=== PATIENT | male | born 1990 | race Caucasian/White ===

== ENCOUNTER 2018-09-09 18:47 | Emergency (ER) | payer MEDICAID ==
[~2018-09-09] VITALS: Ht 182.9 cm; Wt 81.6 kg
[2018-09-09 18:50] VITALS: BP_SYST 134
[2018-09-09 19:40] VITALS: BP_SYST 130
== END 2018-09-09 19:40 ==
LOC: SED 18:47
DX: F11.10 Opioid abuse, uncomplicated (principal)
CPT/HCPCS: 99283

== ENCOUNTER 2019-05-28 11:43 | Emergency (ER) | payer MEDICAID ==
[~2019-05-28] VITALS: Ht 180.3 cm; Wt 84.8 kg
[2019-05-28 12:34] VITALS: BP_SYST 130
--- NOTE | 2019-05-28 13:39 | NUR ---
Patient to ER bed h1 for evaluation. Side rails up.
--- NOTE | 2019-05-28 13:41 | NUR ---
Pt AAOx4 ambulted into ED c/o L FA pain and weeping wounds of serous discharge x . days. Denies trauma. No other nijuries/complaints per pt/noted. Will continue to monitor.
--- NOTE | 2019-05-28 13:48 | NUR ---
MILLIE Atkinson at bedside examining patient.
[2019-05-28] MEDS ORDERED: IBUPROFEN 600 MG TABLET PO ONE (14:00)
[2019-05-28] MEDS ORDERED: cefTRIAXone 1 GM VIAL IM ONE (14:00)
--- NOTE | 2019-05-28 14:17 | NUR ---
Patient given written and verbal discharge instructions and verbalizes understanding. MILLIE Atkinson discussed with patient the results and treatment provided. Patient in stable condition. ID arm band removed. Rx of Motrin, Mupirocin, Keflex, Bactrim given. Patient educated on pain management and to follow up with PMD. Pain Scale 2. Demetrio BYRNE aware. Opportunity for questions provided and answered. Medication side effect fact sheet provided.
[2019-05-28 14:18] VITALS: BP_SYST 128
== END 2019-05-28 14:18 | disposition home or self-care (01) ==
LOC: SED 11:43
DX: L03.114 Cellulitis of left upper limb (principal)
CPT/HCPCS: 73090; 87070; 87186; 96372; 99284; J0696; 99283

== ENCOUNTER 2019-08-15 08:38 | Emergency (ER) | payer MEDICAID ==
[~2019-08-15] VITALS: Ht 182.9 cm; Wt 90.7 kg
[2019-08-15 08:43] VITALS: BP_SYST 134
[2019-08-15] MEDS ORDERED: fentaNYL CITRATE/PF 100 MCG/2 ML AMP IM ONE (09:15)
[2019-08-15 10:19] VITALS: BP_SYST 134
== END 2019-08-15 10:10 | disposition home or self-care (01) ==
LOC: SED 08:38
DX: S30.0XXA Contusion of lower back and pelvis, initial encounter (principal); S70.02XA Contusion of left hip, initial encounter; V29.40XA Motorcycle driver injured in collision with unspecified motor vehicles in traffic accident, initial encounter; Y93.89 Activity, other specified; Y92.89 Other specified places as the place of occurrence of the external cause; Y99.8 Other external cause status
CPT/HCPCS: 72100; 72170; 96372; 99283; J3010

== ENCOUNTER 2019-10-03 12:42 | Inpatient (IN) | payer MEDICAID, OTHER ==
[~2019-10-03] VITALS: Ht 180.3 cm; Wt 81.7 kg
[2019-10-03 12:45] VITALS: BP_SYST 148
--- NOTE | 2019-10-03 12:45 | NUR ---
Patient triaged and placed in waiting room. VSS and patient appears in no acute distress at this time. Accompanied by SELF, awaiting available bed, and MD notified of need for MSE.
[2019-10-03 14:22] LABS: BASOPHILS # (AUTO) 0.1 K/uL (0.0-0.2); BASOPHILS % (AUTO) 1.1 % (0.0-2.0); EOSINOPHILS # (AUTO) 0.1 K/uL (0.0-0.4); EOSINOPHILS % (AUTO) 2.3 % (0.0-4.0); HEMATOCRIT 42.1 % (36-54); HEMOGLOBIN 13.9 g/dL (14.0-18.0); LYMPHOCYTES # (AUTO) 1.5 K/uL (1.0-5.5); LYMPHOCYTES % (AUTO) 23.8 % (20.5-51.5); MEAN CORPUSCULAR HEMOGLOBIN 28 pg (27-31); MEAN CORPUSCULAR HGB CONC 33 % (32-36); MEAN CORPUSCULAR VOLUME 86 fL (79.0-98.0); MONOCYTES # (AUTO) 0.5 K/uL (0.0-1.0); NEUTROPHILS % (AUTO) 64.8 % (40.0-70.0); PLATELET COUNT (AUTO) 262 K/uL (130-430); RED CELL DISTRIBUTION WIDTH 17.3 % (9.0-15.0); WHITE BLOOD COUNT (AUTO) 6.1 K/uL (4.8-10.8)
[2019-10-03 14:37] LABS: ANION GAP 10 (5-15); CHLORIDE 102 mmol/L (98-107); CREATININE 0.78 mg/dL (0.55-1.30); GLUCOSE 98 mg/dL (70-99); POTASSIUM 4.1 mmol/L (3.5-5.1); SODIUM SERUM 139 mmol/L (136-145); UREA NITROGEN, BLOOD 10 mg/dL (8-21)
[2019-10-03 14:39] LABS: INR 1.1 (0.80-1.20); PROTHROMBIN TIME 11.1 SECS (9.5-12.5)
[2019-10-03 14:41] LABS: GFR AFRICAN AMERICAN 150 mL/min (>90)
[2019-10-03 14:52] LABS: ALANINE AMINOTRANSFERASE 1449 U/L (12-78); ALBUMIN 3.8 g/dL (3.4-4.8); ASPARTATE AMINOTRANSFERASE 1193 U/L (10-37)
[2019-10-03 14:55] LABS: ALCOHOL, BLOOD < 3 mg/dL (<10)
[2019-10-03 14:56] LABS: ACETAMINOPHEN < 1 ug/mL (1-30)
--- NOTE | 2019-10-03 15:01 | NUR ---
BROUGHT BACK TO BED #5 AND TRIAGED. REPORT GIVEN TO BRANDT
--- NOTE | 2019-10-03 15:10 | NUR ---
Patient arrived in the ED c/o tea-colored urine, lower abdominal pain, urinary frequency and yellow sclera that started yesterday. Bowel sounds present in all 4 quadrants, LBM 10/03/19. Denied any fevers or chills. Denied any nausea, vomiting or diarrhea. Patient is alert and oriented x4, respirations even and unlabored, speaking in full sentences, and ambulating with a steady gait. VSS, pain severity 4/10. Denied any respiratory distress at this time. Informed of the wait time. Instructed to notify ED staff for any changes in condition or worsening of symptoms. Patient verbalized understanding.
--- NOTE | 2019-10-03 15:25 | NUR ---
ECg done at bedside as ordered by Dr. Narayanan. Report given to MD. Patient tolerated the procedure well.
--- NOTE | 2019-10-03 15:29 | NUR ---
ER Dr. Narayanan at bedside examining patient.
--- NOTE | 2019-10-03 15:40 | NUR ---
# 18 gauge angiocath placed to LAC. Use of asceptic technique. Opsite placed over site. Blood return noted. Blood for lab drawn from site. Flushed with 10 cc of normal saline. No evidence of infiltration noted. Patient tolerated well.
--- NOTE | 2019-10-03 15:58 | NUR ---
Patient is taken to X-ray in stable condition.
--- NOTE | 2019-10-03 16:05 | NUR ---
Patient is back from X-ray in stable condition.
[2019-10-03 16:30] LABS: BILIRUBIN,URINE 3+ (NEGATIVE); BLOOD, URINE 3+ (NEGATIVE); COLOR,URINE BROWN (YELLOW); GLUCOSE,URINE NEGATIVE (NEGATIVE); KETONES,URINE NEGATIVE (NEGATIVE); LEUKOCYTE ESTERASE ,URINE TRACE (NEGATIVE); NITRITE, URINE POSITIVE (NEGATIVE); PH,URINE 5.5 (5.0-8.0); PROTEIN URINE 1+ (NEGATIVE)
[2019-10-03 16:47] LABS: CLARITY/URINE HAZY (CLEAR)
[2019-10-03] MEDS ORDERED: KCL 20 mEq in D5/0.45NS 1000mL 1,000 ML IV ONE ×2 (17:00→22:35)
[2019-10-03 17:18] LABS: BARBITURATE, URINE NEGATIVE (NEG <=200); BENZODIAZEPINE, URINE NEGATIVE (NEG <=150); CANNABINOID, URINE POSITIVE (NEG <=50); COCAINE, URINE NEGATIVE (NEG <=150); OPIATE, URINE NEGATIVE (NEG <=100); PHENCYCLIDINE SCREEN,URINE NEGATIVE (NEG <=25); UR TRICYCLIC ANTIDEPRESSANTS NEGATIVE (NEG <=300); URINE METHADONE NEGATIVE (NEG <=200); URINE OXYCODONE SCREEN NEGATIVE (NEG <=100); URINE PROPOXYPHENE SCREEN NEGATIVE (NEG <=300)
[2019-10-03 17:19] LABS: BACTERIA,URINE FEW /HPF (None Seen); CALCIUM OXALATE CRYSTALS,UR 0-10 /HPF (None Seen); FINE GRANULAR CASTS,URINE 0-10 /LPF (None Seen); URINE AMORPHOUS URATE 2+ /HPF (None Seen); URINE AMPHETAMINE POSITIVE (NEG <=500)
[2019-10-03 17:20] LABS: METHAMPHETAMINES SCREEN,URINE POSITIVE (NEG <=500); MUCUS,URINE 1+ /LPF (None Seen)
--- NOTE | 2019-10-03 17:30 | NUR ---
Spoke with Lisette, no beds available yet. Will call once it's ready.
--- NOTE | 2019-10-03 18:07 | NUR ---
Belonging's list done. Patient stated he's not taking meds at home.
--- NOTE | 2019-10-03 19:39 | NUR ---
Report given and care transferred to RICCARDO Sullivan.
--- NOTE | 2019-10-03 20:15 | NUR ---
Patient will be admitted to care of . Admitted to M/S unit. Will go to room 101A. Belongings list completed. Complete and up to date summary report printed. SBAR report to be given at bedside with opportunity for questions.
--- NOTE | 2019-10-03 20:33 | NUR ---
Transfer to [facility]. IV present no sign or symptom of infiltration.
--- NOTE | 2019-10-03 20:45 | NUR ---
Normal saline and Current Meds endorsed to RICCARDO Mac
--- NOTE | 2019-10-03 20:45 | NUR ---
Bedside Report given to RICCARDO Mac
--- NOTE | 2019-10-03 21:09 | NUR ---
ADMISSION: The patient, VALERY CHRISTIANSON, 29 y/o, M admitted by JERRY DEE MD, was given written information regarding hospital policies, unit procedures and contact persons. Valuables were checked and CALL JUAN INSTRUCTIONS implemented patient is AMBULATORY PROCEDURES EXPLAINED FALL MEASURES IN place .
[2019-10-03 21:13] VITALS: BP_SYST 137
--- NOTE | 2019-10-03 23:14 | NUR ---
DR LEILA WILDE @ THE BEDSIDE .
--- NOTE | 2019-10-03 23:14 | NUR ---
NEW ORDERS OBTAINED , AM LABS .
[2019-10-04 00:56] VITALS: BP_SYST 135
--- NOTE | 2019-10-04 02:19 | NUR ---
NPO this hour AM procedure U/S ABDOMEN ordered .
--- NOTE | 2019-10-04 02:24 | NUR ---
CONSULTATION PAGED/CALLED Reason for Consultation: ACUTE HEPATITIS Person Who was Notified: RIVERA Consulting Physician: WILLIAM Waxer Specialty: Ordering Physician: LEILA
--- NOTE | 2019-10-04 05:29 | NUR ---
Patient Resting is verbally Responsive HOB elevated able to self Reposition no acute distress noted call silvestre given to patient FALL MEASURES EFFECTIVE .
--- NOTE | 2019-10-04 07:56 | NUR ---
initial notes rec patient asleep but arousable to stimuli. ivl on the l forearm intact. no infiltration noted. resp easy and unlabored. bed to the lowest position and side rails up and locked. call light withn reached and knows when to call [place] assistance.
[2019-10-04 08:00] VITALS: BP_SYST 130
[2019-10-04 08:04] LABS: ALBUMIN 2.8 g/dL (3.4-4.8); CREATININE 0.73 mg/dL (0.55-1.30); PHOSPHORUS 3.5 mg/dL (2.7-4.5); POTASSIUM 3.7 mmol/L (3.5-5.1); TOTAL BILIRUBIN 6.5 mg/dL (0.0-1.0)
[2019-10-04 08:38] LABS: TOTAL IRON BIND. CAPACITY 385 ug/dL (250-450)
--- NOTE | 2019-10-04 10:00 | NUR ---
rounds sleeping soundly at this time. family at bedside. call light within reached.
[2019-10-04 12:08] VITALS: BP_SYST 122
--- NOTE | 2019-10-04 13:05 | NUR ---
CONSULTATION PAGED/CALLED Reason for Consultation: [] SUICIDAL IDEATION Person Who was Notified: [] JAVON Consulting Physician: [] DR Salma LIU Wolf Hunter Specialty: [] PSYCH Ordering Physician: [] DR DEE
--- NOTE | 2019-10-04 15:26 | NUR ---
Bread Wrapper: met with pt to conduct a DCPA . BOOT AND SADDLE REPAIR PERSON met with pt. who had a visitor, his girlfriend, Kapil Funes. 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 Kapil use to live in [facility] in [facility] and this is why pt. spends his time in [facility] as homeless. Pt refused detention resources stating he has seen them and will not go as he prefers to stay on the street. Pt. stated he does not have any connections to his family. He has a brother, but is not close to him. Pt. could not state how long he has been homeless. He said it has been anywhere between 2-4 years, staying on the streets mostly , but sometimes on a friends couch. Pt. said he has never been Dx. by any mental health professional with any Dx. He went on to say that he feels he is depressed. He stated he isolates himself, does not sleep. His girlfriend stated, pt does not eat. He said that he does use pot and other drugs as a way to calm himself down. He buys his drugs off the street and is aware of the dangers of doing this. Pt. stated about 3 weeks ago he participated in a 3 month program. for about 1 month. The facility, "[facility]" asked him to leave because he was sick and they did not want him to get the other clients ill. He stated he would be willing to go back to the same drug program or another one. BOOT AND SADDLE REPAIR PERSON asked pt. if he has ever felt suicidal. Pt responded, "Everyday ! I feel like that everyday. Pt. went on to say when he feels suicidal, he feels like he would jump off a bridge. When asked, pt. stated he would be willing to speak to a Dr. about his suicidal feelings. Pt. asked what happened if he leaves without being discharged. BOOT AND SADDLE REPAIR PERSON explained that it considered, AMA, against medical advice. If he leaves hospital AMA, he will get a hospital bill. BOOT AND SADDLE REPAIR PERSON spoke to him and asked him to let the Dr. continue to treat him and find out what his health condition is. Pt. just listened. Pt. is homeless. BOOT AND SADDLE REPAIR PERSON shared with him a homeless packet with various resources including housing, mental health, clinics, substance abuse etc. BOOT AND SADDLE REPAIR PERSON shared this info with pts. Rn. Toth and then the Marketing Reporting AnalystSarah. BOOT AND SADDLE REPAIR PERSON went back to speak to pt. who was speaking to Sarah. He stated the last time he felt suicidal was two days ago. He said he did not feel this way today. BOOT AND SADDLE REPAIR PERSON thanked him for his assistance. BOOT AND SADDLE REPAIR PERSON will remain available as needed. Allie Smith stated she is still requesting that Dr. Max ask for a pscy. consult.
--- NOTE | 2019-10-04 16:00 | NUR ---
rounds sleeping at intervals. call light within reached. bed to the lowest position and teri erails up and locked.
[2019-10-04 16:30] VITALS: BP_SYST 126
--- NOTE | 2019-10-04 18:38 | NUR ---
closing notes seen by dr edmonds. no new order. bed to the lowest position and side rails up and locked. call light within reached. no osb noted.
--- NOTE | 2019-10-04 19:40 | NUR ---
ROUNDS PATIENT RESTING COMFORTABLY IN BED, VITALS STABLE, DENIES ANY PAIN AND DISCOMFORT AT THIS TIME. ASSESSMENT DONE AND DOCUMENTED. SEE FLOWSHEET. NEEDS ATTENDED TO. SAFETY MEASURES IN PLACED. CALL LIGHT PLACED WITHIN REACH.
[2019-10-04 20:00] VITALS: BP_SYST 142
--- NOTE | 2019-10-04 22:10 | NUR ---
PATIENT RESTING: Patient resting quietly. No acute distress noted. Vital signs within normal range.
[2019-10-05] VITALS: BP_SYST 131
--- NOTE | 2019-10-05 00:28 | NUR ---
ROUNDS PATIENT ASLEEP, RESPIRATIONS EVEN AND UNLABORED, NO SOB NOR PAIN AND DISCOMFORT NOTED. WILL CONTINUE TO MONITOR.
--- NOTE | 2019-10-05 02:11 | NUR ---
ROUNDS ASLEEP, NO SIGNS OF SOB NOR PAIN AND DISCOMFORT NOTED. WILL CONTINUE TO MONITOR.
--- NOTE | 2019-10-05 04:32 | NUR ---
PATIENT RESTING: Patient resting quietly. No acute distress noted. Vital signs within normal range.
[2019-10-05 05:11] LABS: HEPATITIS A AB, IgM Negative (Negative); HEPATITIS B CORE AB, IgM Negative (Negative); HEPATITIS B SURFACE AG Negative (Negative)
--- NOTE | 2019-10-05 06:22 | NUR ---
CLOSING NOTES PATIENT AWAKE, VITALS STABLE, NO COMPLAINTS AT THIS TIME. ALL NEEDS ATTENDED TO. SAFETY MEASURES MAINTAINED. BED IN LOW AND LOCKED POSITION. CALL LIGHT PLACED WITHIN REACH.
[2019-10-05 07:06] LABS: ALBUMIN 3.1 g/dL (3.4-4.8); BILIRUBIN,DIRECT 3.7 mg/dL (0.0-0.3); TOTAL BILIRUBIN 4.4 mg/dL (0.0-1.0)
[2019-10-05 08:00] VITALS: BP_SYST 128
--- NOTE | 2019-10-05 08:00 | NUR ---
PATIENT IS RESTING; A/OX4, BUT APPEARS APATHETIC. POC IS EXPLAINED. PATIENT VERBALIZED UNDERSTANDING, BUT STATED THAT HE WANTS TO SLEEP. WILL CONTINUE TO MONITOR.
[2019-10-05 08:06] LABS: AFP, TUMOR MARKER 8.2 ng/mL (0.0-8.3)
--- NOTE | 2019-10-05 09:51 | NUR ---
PATIENT IS RESTING, AROUSABLE. WILL CONTINUE TO MONITOR.
--- NOTE | 2019-10-05 11:40 | NUR ---
PATIENT'S FAMILY IS AT BEDSIDE WITH PATIENT.
--- NOTE | 2019-10-05 13:10 | NUR ---
PATIENT FINISHES LUNCH, TOLERATED WITHOUT DISTRESS.
--- NOTE | 2019-10-05 15:35 | NUR ---
PATIENT IS RESTING, AROUSABLE. INQUIRED ABOUT PATIENT'S LIVING AND SOCIAL SITUATION WITH HIS GIRLFRIEND.
[2019-10-05 16:00] VITALS: BP_SYST 125
[2019-10-05 17:06] LABS: ANTI NUCLEAR AB WITH REFLEX Negative (Negative)
--- NOTE | 2019-10-05 18:02 | NUR ---
PATIENT FINISHED DINNER. TOLERATED WITHOUT DISTRESS.
--- NOTE | 2019-10-05 19:35 | NUR ---
ROUNDS PATIENT RESTING COMFORTABLY IN BED, VITALS STABLE, NO COMPLAINTS AT THIS TIME. ASSESSMENT DONE AND DOCUMENTED. SEE FLOWSHEET. NEEDS ATTENDED TO. SAFETY MEASURES IN PLACED. CALL LIGHT PLACED WITHIN REACH.
[2019-10-05 20:00] VITALS: BP_SYST 126
--- NOTE | 2019-10-05 20:20 | NUR ---
DR. LEILA DEE SAW THE PATIENT WITH NEW ORDERS. WILL CONTINUE TO MONITOR.
[2019-10-06] VITALS: BP_SYST 131
--- NOTE | 2019-10-06 00:13 | NUR ---
PATIENT RESTING: Patient resting quietly. No acute distress noted. Vital signs within normal range.
--- NOTE | 2019-10-06 02:14 | NUR ---
ROUNDS PATIENT ASLEEP, NO SIGNS OF ANY PAIN AND DISCOMFORT NOTED. WILL CONTINUE TO MONITOR.
[2019-10-06 08:00] VITALS: BP_SYST 122
--- NOTE | 2019-10-06 08:00 | NUR ---
PATIENT IS RESTING; A/OX4. POC IS EXPLAINED. PATIENT VERBALIZED UNDERSTANDING, BUT HE STATES HIS DESIRE TO LEAVE. HE IS INFORMED THAT HE CAN LEAVE AMA, BUT HE CHANGES HIS MIND.
[2019-10-06 08:10] LABS: BASOPHILS % (AUTO) 0.5 % (0.0-2.0); EOSINOPHILS # (AUTO) 0.2 K/uL (0.0-0.4); EOSINOPHILS % (AUTO) 2.4 % (0.0-4.0); HEMATOCRIT 43.6 % (36-54); HEMOGLOBIN 14.4 g/dL (14.0-18.0); LYMPHOCYTES # (AUTO) 2.1 K/uL (1.0-5.5); MEAN CORPUSCULAR HEMOGLOBIN 28 pg (27-31); MEAN CORPUSCULAR HGB CONC 33 % (32-36); MEAN CORPUSCULAR VOLUME 86 fL (79.0-98.0); MONOCYTES # (AUTO) 0.4 K/uL (0.0-1.0); MONOCYTES % (AUTO) 6.7 % (1.7-9.3); NEUTROPHILS # (AUTO) 3.7 K/uL (1.8-7.7); NEUTROPHILS % (AUTO) 57.4 % (40.0-70.0); PLATELET COUNT (AUTO) 250 K/uL (130-430); RED BLOOD CELL COUNT(AUTO) 5.06 MIL/uL (4.2-6.2); RED CELL DISTRIBUTION WIDTH 17.2 % (9.0-15.0); WHITE BLOOD COUNT (AUTO) 6.4 K/uL (4.8-10.8)
[2019-10-06 08:30] LABS: ALBUMIN 3.3 g/dL (3.4-4.8); CALCIUM 8.9 mg/dL (8.4-11.0); CREATININE 0.67 mg/dL (0.55-1.30); TOTAL BILIRUBIN 3.5 mg/dL (0.0-1.0)
--- NOTE | 2019-10-06 11:45 | NUR ---
DR. DEE IS CALLED IF PATIENT CAN BE DISCHARGED
--- NOTE | 2019-10-06 14:03 | NUR ---
Dr. Max is called if patient can be discharged. He agrees and gives order for his discharge.
[2019-10-06 14:06] LABS: ALPHA-1-ANTITRYPSIN, S 155 mg/dL (95-164)
[2019-10-06 14:42] VITALS: BP_SYST 122
[2019-10-07 10:06] LABS: ANTI-SMOOTH MUSCLE AB 8 Units (0-19)
[2019-10-11 15:47] LABS: FERRITIN 1070 ng/mL (30-400)
== END 2019-10-06 15:00 | disposition home or self-care (01) ==
LOC: SED 12:42 → SMU 16:54
PROVIDERS: ADMIT Family Medicine; ATTEND Family Medicine
DX: B17.9 Acute viral hepatitis, unspecified (principal); R16.1 Splenomegaly, not elsewhere classified; E66.9 Obesity, unspecified; F12.90 Cannabis use, unspecified, uncomplicated; F15.10 Other stimulant abuse, uncomplicated; F17.210 Nicotine dependence, cigarettes, uncomplicated; F32.9 Major depressive disorder, single episode, unspecified; Z59.0 Homelessness; Z79.899 Other long term (current) drug therapy; Z68.25 Body mass index [BMI] 25.0-25.9, adult
CPT/HCPCS: 36415; 70450-TC; 71045; 76700-TC; 80053; 80076; 80307; 81000-TC; 82103; 82105; 82150-TC; 82550-TC; 82728; 83516; 83540-TC; 83550-TC; 83605; 83690-TC; 83735-TC; 83880; 84100-TC; 84484; 85025; 85610-TC; 85730-TC; 86038; 86705; 86709; 86803; 87040-TC; 87086; 87340; 93005; 99285; G0480; G0481; G0482; J7030

== ENCOUNTER 2019-11-04 13:21 | Emergency (ER) | payer MEDICAID ==
[~2019-11-04] VITALS: Ht 180.3 cm; Wt 81.6 kg
[2019-11-04 13:25] VITALS: BP_SYST 134
[2019-11-04] MEDS ORDERED: ACETAMINOPHEN 500 MG TABLET PO ONE (13:45)
[2019-11-04] MEDS ORDERED: DIPH-TET-PERTUS Vaccine 0.5 ML VIAL (ADACEL) I.M. ONE (13:45)
[2019-11-04] MEDS ORDERED: AMOXICILLIN/CLAVULANATE POTASSIUM 875 MG TABLET PO ONE (15:45)
[2019-11-04] MEDS ORDERED: HYDROcodone/ACETAMIN 7.5-325 MG TAB PO ONE (15:45)
[2019-11-04] MEDS ORDERED: ACETAMINOPHEN 500 MG TABLET ONE (15:49)
[2019-11-04] MEDS ORDERED: DIPH-TET Vacc 0.5 ML VIAL I.M. ONE (15:51)
[2019-11-04 16:20] VITALS: BP_SYST 146
== END 2019-11-04 16:20 | disposition home or self-care (01) ==
LOC: SED 13:21
DX: S02.32XA Fracture of orbital floor, left side, initial encounter for closed fracture (principal); S01.81XA Laceration without foreign body of other part of head, initial encounter; S01.312A Laceration without foreign body of left ear, initial encounter; R03.0 Elevated blood-pressure reading, without diagnosis of hypertension; F17.210 Nicotine dependence, cigarettes, uncomplicated; Z71.6 Tobacco abuse counseling; Y04.0XXA Assault by unarmed brawl or fight, initial encounter; Y93.89 Activity, other specified; Y92.89 Other specified places as the place of occurrence of the external cause; Y99.8 Other external cause status
CPT/HCPCS: 70450-TC; 70486-TC; 72125-TC; 90714; 99285

== ENCOUNTER 2020-01-12 22:47 | Inpatient (IN) | payer MEDICAID ==
[~2020-01-12] VITALS: Ht 180.3 cm; Wt 70.3 kg
[2020-01-12 23:00] VITALS: BP_SYST 115
[2020-01-13] MEDS ORDERED: fentaNYL CITRATE/PF 100 MCG/2 ML AMP IVP ONE (00:15)
[2020-01-13] MEDS ORDERED: PIPERACILLIN/TAZO 3.375 GM in NS 50 ML IV ONE (00:15)
[2020-01-13] MEDS ORDERED: NACL 0.9% 1,000 ML IV ONE (00:15)
[2020-01-13] MEDS ORDERED: ACETAMINOPHEN 325 MG TABLET PO PRN ×2 (00:30→08:45)
[2020-01-13] MEDS ORDERED: HYDROcodone/ACETAMIN 5-325 MG TAB (NORCO/ VICODIN) PO PRN (00:30)
[2020-01-13] MEDS ORDERED: ONDANSETRON HCL 4 MG/2 ML VIAL IVP PRN ×2 (00:30→08:45)
[2020-01-13] MEDS ORDERED: VANCOMYCIN HCL 1,000 MG in NS 250 ML IV ONE (00:30)
[2020-01-13] MEDS ORDERED: PIPERACILLIN/TAZOBACTAM 3.375 GM/VIAL (ZOSYN) IV ONE (00:36)
[2020-01-13 00:48] LABS: HEMATOCRIT 37.3 % (36-54); HEMOGLOBIN 12.1 g/dL (14.0-18.0); MEAN CORPUSCULAR HEMOGLOBIN 28 pg (27-31); MEAN CORPUSCULAR HGB CONC 32 % (32-36); MEAN CORPUSCULAR VOLUME 85 fL (79.0-98.0); PLATELET COUNT (AUTO) 505 K/uL (130-430); RED BLOOD CELL COUNT(AUTO) 4.38 MIL/uL (4.2-6.2); RED CELL DISTRIBUTION WIDTH 14.5 % (9.0-15.0); WHITE BLOOD COUNT (AUTO) 26.2 K/uL (4.8-10.8)
[2020-01-13 00:51] LABS: BILIRUBIN,URINE NEGATIVE (NEGATIVE); BLOOD, URINE NEGATIVE (NEGATIVE); CLARITY/URINE CLEAR (CLEAR); COLOR,URINE YELLOW (YELLOW); GLUCOSE,URINE NEGATIVE (NEGATIVE); KETONES,URINE NEGATIVE (NEGATIVE); LEUKOCYTE ESTERASE ,URINE NEGATIVE (NEGATIVE); NITRITE, URINE NEGATIVE (NEGATIVE); PH,URINE 5.5 (5.0-8.0); PROTEIN URINE NEGATIVE (NEGATIVE); UROBILINOGEN,URINE 0.2 (0.2-1.0)
[2020-01-13 00:54] LABS: FREE T4 (FREE THYROXINE) 1.6 ng/dl (0.8-1.5); THYROID STIMULATING HORMONE 1.97 uIu/mL (0.36-3.74)
[2020-01-13] MEDS ORDERED: VANCOMYCIN HCL 1000 MG/VIAL IV ONE (00:57)
[2020-01-13 00:59] LABS: CALCIUM 7.6 mg/dL (8.4-11.0); CREATININE 1.56 mg/dL (0.55-1.30); POTASSIUM 3.8 mmol/L (3.5-5.1); TOTAL BILIRUBIN 0.3 mg/dL (0.0-1.0)
[2020-01-13 01:00] LABS: INR 1.2 (0.80-1.20); PROTHROMBIN TIME 12.2 SECS (9.5-12.5)
[2020-01-13 01:08] LABS: BARBITURATE, URINE NEGATIVE (NEG <=200); BENZODIAZEPINE, URINE NEGATIVE (NEG <=150); CANNABINOID, URINE NEGATIVE (NEG <=50); COCAINE, URINE NEGATIVE (NEG <=150); METHAMPHETAMINES SCREEN,URINE POSITIVE (NEG <=500); OPIATE, URINE NEGATIVE (NEG <=100); PHENCYCLIDINE SCREEN,URINE NEGATIVE (NEG <=25); UR TRICYCLIC ANTIDEPRESSANTS NEGATIVE (NEG <=300); URINE AMPHETAMINE POSITIVE (NEG <=500); URINE METHADONE NEGATIVE (NEG <=200); URINE OXYCODONE SCREEN NEGATIVE (NEG <=100); URINE PROPOXYPHENE SCREEN NEGATIVE (NEG <=300)
[2020-01-13 01:33] LABS: ATYPICAL LYMPHOCYTES % 0 % (0-0); BAND % (MANUAL) 5 % (0-6); BASOPHILS % (MANUAL) 0 % (0-2); EOSINOPHILS % (MANUAL) 0 % (0-7); LYMPHOCYTES % (MANUAL) 5 % (20-46); MONOCYTES % (MANUAL) 3 % (0-11)
[2020-01-13 01:34] LABS: METAMYELOCYTES % 3 % (0-0)
[2020-01-13 01:48] VITALS: BP_SYST 99
[2020-01-13] MEDS ORDERED: ZOLPIDEM TARTRATE 5 MG TABLET PO PRN (08:45)
[2020-01-13] MEDS ORDERED: DOCUSATE SODIUM 100 MG CAPSULE PO PRN (08:45)
[2020-01-13] MEDS ORDERED: POTASSIUM CHLORIDE 20 MEQ TAB.PRT.SR PO PRN (08:45)
[2020-01-13] MEDS ORDERED: MORPHINE SULFATE 10 MG/ML VIAL IVP PRN ×2 (08:45)
[2020-01-13] MEDS ORDERED: LORazepam 2 MG/ML VIAL IVP PRN (08:45)
[2020-01-13] MEDS ORDERED: MUPIROCIN 2% TOPICAL OINTMENT 22 GM NS PRN (08:45)
[2020-01-13] MEDS ORDERED: MAGNESIUM SULFATE 50 ML IV PRN (08:45)
[2020-01-13] MEDS: DOCUSATE SODIUM 100 MG CAPSULE PO SCH (08:55)
[2020-01-13 09:00] VITALS: BP_SYST 97
[2020-01-13] MEDS: NACL 0.9% 1,000 ML IV SCH ×2 (10:15→23:52)
[2020-01-13 12:00] VITALS: BP_SYST 95
[2020-01-13] MEDS ORDERED: CLINDAMYCIN 600 MG in D5W 50 ML IV ONE (13:00)
[2020-01-13] MEDS: FLUCONAZOLE 200 mg/ NS 100 ML IV SCH (13:01)
[2020-01-13] MEDS: VANCOMYCIN HCL 750 MG in NS 250 ML IV SCH (14:18)
[2020-01-13 16:23] VITALS: BP_SYST 113; BP_SYST 163
[2020-01-13] MEDS: CLINDAMYCIN 600 MG in D5W 50 ML IV SCH ×2 (18:20→23:52)
[2020-01-13 21:10] VITALS: BP_SYST 121
[2020-01-13 23:55] VITALS: BP_SYST 111
[2020-01-14] MEDS: VANCOMYCIN HCL 750 MG in NS 250 ML IV SCH ×2 (02:05→17:33)
[2020-01-14] MEDS: CLINDAMYCIN 600 MG in D5W 50 ML IV SCH ×4 (05:51→23:20)
[2020-01-14] MEDS: NACL 0.9% 1,000 ML IV SCH ×2 (05:51→21:14)
[2020-01-14 06:34] LABS: CALCIUM 7.1 mg/dL (8.4-11.0); CREATININE 0.96 mg/dL (0.55-1.30)
[2020-01-14 06:52] LABS: BASOPHILS # (AUTO) 0.1 K/uL (0.0-0.2); BASOPHILS % (AUTO) 0.7 % (0.0-2.0); EOSINOPHILS # (AUTO) 0.2 K/uL (0.0-0.4); EOSINOPHILS % (AUTO) 1.7 % (0.0-4.0); HEMATOCRIT 31.9 % (36-54); HEMOGLOBIN 10.5 g/dL (14.0-18.0); LYMPHOCYTES # (AUTO) 1.9 K/uL (1.0-5.5); LYMPHOCYTES % (AUTO) 13.5 % (20.5-51.5); MEAN CORPUSCULAR HEMOGLOBIN 28 pg (27-31); MEAN CORPUSCULAR HGB CONC 33 % (32-36); MEAN CORPUSCULAR VOLUME 84 fL (79.0-98.0); MONOCYTES # (AUTO) 0.9 K/uL (0.0-1.0); MONOCYTES % (AUTO) 6.2 % (1.7-9.3); NEUTROPHILS # (AUTO) 10.8 K/uL (1.8-7.7); NEUTROPHILS % (AUTO) 77.9 % (40.0-70.0); PLATELET COUNT (AUTO) 387 K/uL (130-430); RED CELL DISTRIBUTION WIDTH 14.3 % (9.0-15.0)
[2020-01-14 07:33] LABS: WHITE BLOOD COUNT (AUTO) 13.8 K/uL (4.8-10.8)
[2020-01-14] MEDS: DOCUSATE SODIUM 100 MG CAPSULE PO SCH (08:43)
[2020-01-14 09:30] VITALS: BP_SYST 134
[2020-01-14 12:30] VITALS: BP_SYST 110
[2020-01-14] MEDS: FLUCONAZOLE 200 mg/ NS 100 ML IV SCH (13:00)
[2020-01-14 16:25] VITALS: BP_SYST 139
[2020-01-14 20:00] VITALS: BP_SYST 126
[2020-01-15 00:06] VITALS: BP_SYST 133
[2020-01-15] MEDS: NACL 0.9% 1,000 ML IV SCH ×2 (00:45→10:45)
[2020-01-15] MEDS: VANCOMYCIN HCL 750 MG in NS 250 ML IV SCH (01:54)
[2020-01-15] MEDS: CLINDAMYCIN 600 MG in D5W 50 ML IV SCH (05:28)
[2020-01-15 06:38] LABS: BASOPHILS # (AUTO) 0.1 K/uL (0.0-0.2); BASOPHILS % (AUTO) 0.7 % (0.0-2.0); EOSINOPHILS # (AUTO) 0.2 K/uL (0.0-0.4); EOSINOPHILS % (AUTO) 1.7 % (0.0-4.0); HEMOGLOBIN 10.8 g/dL (14.0-18.0); LYMPHOCYTES # (AUTO) 1.8 K/uL (1.0-5.5); LYMPHOCYTES % (AUTO) 12.4 % (20.5-51.5); MEAN CORPUSCULAR HEMOGLOBIN 28 pg (27-31); MEAN CORPUSCULAR HGB CONC 33 % (32-36); MEAN CORPUSCULAR VOLUME 85 fL (79.0-98.0); MONOCYTES # (AUTO) 0.8 K/uL (0.0-1.0); MONOCYTES % (AUTO) 5.4 % (1.7-9.3); NEUTROPHILS # (AUTO) 11.2 K/uL (1.8-7.7); NEUTROPHILS % (AUTO) 79.8 % (40.0-70.0); PLATELET COUNT (AUTO) 431 K/uL (130-430); RED CELL DISTRIBUTION WIDTH 14.3 % (9.0-15.0); WHITE BLOOD COUNT (AUTO) 14.1 K/uL (4.8-10.8)
[2020-01-15 07:53] LABS: CALCIUM 7.1 mg/dL (8.4-11.0); CREATININE 0.97 mg/dL (0.55-1.30); POTASSIUM 3.6 mmol/L (3.5-5.1)
[2020-01-15 08:00] VITALS: BP_SYST 138
[2020-01-15] MEDS ORDERED: LACT1CAP72 PO (08:21)
[2020-01-15] MEDS ORDERED: DIF100 PO (08:21)
[2020-01-15] MEDS ORDERED: CLIN300C11 PO (08:21)
[2020-01-15] MEDS: DOCUSATE SODIUM 100 MG CAPSULE PO SCH (08:37)
[2020-01-15 08:43] VITALS: BP_SYST 138
[2020-01-15 12:48] VITALS: BP_SYST 132
== END 2020-01-15 12:00 | disposition home or self-care (01) | DRG 720 ==
LOC: SED 22:47 → SMU 01-13 00:23
PROVIDERS: ADMIT Family Medicine; ATTEND Family Medicine
DX: A41.9 Sepsis, unspecified organism (principal); N17.0 Acute kidney failure with tubular necrosis; E43 Unspecified severe protein-calorie malnutrition; E87.1 Hypo-osmolality and hyponatremia; L03.115 Cellulitis of right lower limb; F14.10 Cocaine abuse, uncomplicated; F15.10 Other stimulant abuse, uncomplicated; B96.89 Other specified bacterial agents as the cause of diseases classified elsewhere; I87.2 Venous insufficiency (chronic) (peripheral); E87.6 Hypokalemia; Z68.21 Body mass index [BMI] 21.0-21.9, adult; Z59.0 Homelessness
CPT/HCPCS: 36415; 73552; 80048; 80053; 80061; 80307; 81003; 83036; 83605; 83735-TC; 83880; 84100-TC; 84439; 84443-TC; 84484; 85007; 85025; 85027; 85610-TC; 85730-TC; 87040-TC; 87210-TC; 93306; 93970; 96365; 96367; 96375; 99285; J1450; J2060; J2270; J2543; J3010; J3370; J3490; J7030; J7050; J7060

== ENCOUNTER 2020-01-31 16:42 | Emergency (ER) | payer MEDICAID ==
[~2020-01-31] VITALS: Ht 182.9 cm; Wt 81.6 kg
[2020-01-31 16:42] VITALS: BP_SYST 137
[~2020-01-31 16:42] MED LIST: CLIN300C11 PO; DIF100 PO; LACT1CAP72 PO
--- NOTE | 2020-01-31 16:42 | NUR ---
BROUGHT BACK TO BED #6 AND TRIAGED. REPORT GIVEN TO [place]
--- NOTE | 2020-01-31 16:58 | NUR ---
Pt here for re evaluation for R leg cellulitis, Pt was last in the ER 01/12. Pt has finished rx teatment. Denies pain, fever.
--- NOTE | 2020-01-31 18:03 | NUR ---
DR FELIPE AT BEDSIDE FOR EVALUATION
[2020-01-31 18:30] VITALS: BP_SYST 137
--- NOTE | 2020-01-31 18:30 | NUR ---
Patient given written and verbal discharge instructions and verbalizes understanding. ER MD FELIPE discussed with patient the results and treatment provided. Patient in stable condition. ID arm band removed. Patient educated on pain management and to follow up with PMD. Pain Scale 0. Opportunity for questions provided and answered.
== END 2020-01-31 18:30 | disposition home or self-care (01) ==
LOC: SED 16:42
DX: L03.115 Cellulitis of right lower limb (principal); R60.0 Localized edema; F15.90 Other stimulant use, unspecified, uncomplicated; F17.200 Nicotine dependence, unspecified, uncomplicated; Z79.899 Other long term (current) drug therapy
CPT/HCPCS: 99281